=== PATIENT | female | born 1965 | race Caucasian/White ===

== ENCOUNTER 2020-02-20 12:10 | Emergency (ER) | payer OTHER, SELFPAY ==
--- NOTE | ~2020-02-20 | XR_ITS ---
EXAMINATION: XR abdomen/kub 1V DATE: 02/20/2020 14:21 INDICATION: Abdominal pain. TECHNIQUE: A supine view of the abdomen on 2 radiographs was obtained. COMPARISON: None. FINDINGS: There are no dilated loops of bowel. There is a moderate volume of stool in the colon. Calc ifications in the pelvis are likely phleboliths. IMPRESSION: 1. Normal bowel gas pattern. Reviewed, dictated and finalized at location B. LOOKOUT
--- NOTE | ~2020-02-20 | CT_ITS ---
EXAMINATION: CT abdomen pelvis wo con EXAM DATE: 02/20/2020 14:34 INDICATION: Left flank pain. Nausea and vomiting. TECHNIQUE: Spiral CT of the abdomen and pelvis was performed without contrast. Axial, coronal and sag ittal images were reviewed. The dose-length product (DLP) for this examination was 510.54 mGy-cm. T he exposure was tailored according to patient size (auto mA exposure control), and iterative reconstr uction (ASIR) was used as additional dose reduction technique. There is no prior study for compariso n. FINDINGS: There is a 5 mm stone in the distal aspect of the left ureter, 2 cm from the ureterovesicul ar junction, indicated on axial image 147. There is mild left-sided obstructive nephropathy. No other genitourinary calcifications. The uterus is not identified and has likely been surgically resected. The bladder is unremarkable. The liver, spleen, adrenal glands and pancreas are unremarkable. Gall bladder is unremarkable. No biliary obstruction. There is no retroperitoneal or pelvic lymphadenopa thy. The appendix is normal. There is small sliding gastroesophageal hiatal hernia. There is expected am ount of colonic stool. No free intraperitoneal gas. The heart is normal in size. There are no pe ricardial or pleural effusions. The lung bases are unremarkable. There are no osteoblastic or osteo lytic lesions identified. IMPRESSION: 1. Left distal ureteral 5 mm stone, mild obstructive nephropathy. Urologist consultants would apprec iatdean KUB as baseline for follow-up, treatment planning. 2. Small gastroesophageal hiatal hernia. Reviewed, dictated and finalized at location A. NING SUPERVISOR IMPRESSION: 1. Left distal ureteral 5 mm stone, mild obstructive nephropathy. Urologist co nsultants would appreciate KUB as baseline for follow-up, treatment planning. 2. Small gastroesophageal hiatal hernia.
[2020-02-20 12:31] VITALS: BP 126/76; PULSE 84; RESP 16; TEMP 37; O2SAT 100
[2020-02-20 12:59] LABS: Basophils Percent Auto 0.5 % (0.2-1.2); Eosinophils Absolute Auto 0.1 K/mm3 (0-0.3); Eosinophils Percent Auto 0.8 % (0-4.4); Hematocrit 40.5 % (37.0-47.0); Hemoglobin 13.8 g/dL (12.0-15.0); Immature Granulocyte Absolute 0.02 K/mm3 (0.00-0.031); Immature Granulocyte Percent A 0.2 % (0-0.5); Lymphocytes Absolute Auto 2.11 K/mm3 (0.9-3.2); Lymphocytes Percent Auto 23.8 % (18.3-44.2); Mean Corpuscular HGB Conc 34.1 g/dl (32-36); Mean Corpuscular Hemoglobin 29.8 pg (26-34); Mean Corpuscular Volume 87.5 fl (80-100); Mean Platelet Volume 10.7 fl (7.4-10.4); Monocytes Absolute Auto 0.4 K/mm3 (0.1-0.6); Monocytes Percent Auto 4.5 % (2.6-8.5); Neutrophils Absolute Auto 6.2 K/mm3 (1.3-6.7); Neutrophils Percent Auto 70.2 % (45.5-73.1); Platelet Count Result 334 k/mm3 (150-375); Red Blood Count 4.63 M/mm3 (4.2-5.4); Red Cell Distribution Width 12.3 % (11.5-14.5); White Blood Count 8.9 K/mm3 (4.5-10.0)
[2020-02-20 13:03] LABS: Add Urine Microscopic? YES; Appearance Urine Cloudy (Clear); Bacteria Urine Trace /hpf; Bilirubin Urine Negative (Negative); Blood Urine 3+ (Negative); Color Urine Yellow (Yellow); Glucose Urine UA Negative (Negative); Ketones Urine Trace mg/dL (Negative); Leukocyte Esterase Ur Trace LEU/UL (Negative); Mucus Urine Heavy /lpf; Nitrate Urine Negative (Negative); Protein Urine 2+ mg/dL (Negative); RBC Urine >75 /hpf (0-2); Specific Grav Ur 1.026 (1.001-1.035); Squamous Epithelial Cell Urine Many /hpf (Few); Urobilinogen Urine Negative mg/dL (<2.0)
[2020-02-20 13:17] LABS: Anion Gap 10 mmol/L (8-16); Blood Urea Nitrogen 14 mg/dL (7-17); Calcium 10.2 mg/dL (8.4-10.2); Carbon Dioxide 25 mmol/L (22-30); Chloride 105 mmol/L (98-107); Estimated CRCL calculation 64 ml/min; Estimated Glomerular Filt Rate > 60; Glucose 106 mg/dL (65-105); Potassium 4.1 mmol/L (3.4-5.0); Sodium 140 mmol/L (137-145)
--- NOTE | 2020-02-20 13:41 | ED.GENADULT ---
HPI - General Adult General Chief complaint: Back Pain/Injury Stated complaint: left flank pain Time Seen by Provider: 02/20/20 13:27 Source: patient Mode of arrival: ambulatory Limitations: no limitations History of Present Illness HPI narrative: Patient is a 54-year-old female who presents to emergency department for evaluation of right flank pain that began acutely today as a sharp stabbing pain with associated nausea and vomiting patient has not taken anything for her symptoms denies similar occurrence notes that she had felt fine yesterday pain radiates from right CVA region into the abdomen Related Data Allergies Allergy/AdvReac Type Severity Reaction Status Date / Time No Known Allergies Allergy Unverified 05/19/11 11:57 Review of Systems Review of Systems: All systems reviewed & are unremarkable except as noted in HPI and below PMFSH Social History Social History (Updated 02/20/20 @ 15:54 by Juan Gil PA-C) Smoking status: Current every day smoker Exam Narrative: Exam Narrative: GENERAL: Well-appearing, well-nourished, uncomfortable and in no acute distress. HEAD: Normocephalic, atraumatic. EYES: PERRLA and EOMI. ENT: Nares clear, no rhinorrhea or epistaxis. Mucous membranes moist. CHEST: Clear to auscultation. No respiratory distress. No wheezes rales or rhonchi HEART: Regular rate and rhythm. No murmur heard. Normal peripheral pulses. ABDOMEN: Soft, right-sided abdominal tenderness no distention guarding or rebound EXTREMITIES: Normal range of motion. No edema. SKIN: Warm, dry, no rash. NEURO: No focal deficits. Alert and oriented x3. PSYCH: Normal mood and affect. Course Course Emergency Course: Patient with urolithiasis will be discharged home with urological follow-up patient is aware of case findings treatment plan diagnosis pain well controlled Consultations Consultation #1: Discussed case with urology who will follow patient on an outpatient basis Date: 02/20/20 Time: 15:55 Vital Signs Vital signs: Vital Signs Temperature 98.6 F 02/20/20 12:31 Pulse Rate 84 02/20/20 12:31 Respiratory Rate 16 02/20/20 12:31 Blood Pressure 126/76 02/20/20 12:31 Pulse Oximetry 100 02/20/20 12:31 Temperature 98.6 F 02/20/20 12:31 Pulse Rate 84 02/20/20 12:31 Respiratory Rate 16 02/20/20 12:31 Blood Pressure 126/76 02/20/20 12:31 Pulse Oximetry 100 02/20/20 12:31 Medical Decision Making MDM Narrative Medical decision making narrative: Patient with urolithiasis in the room in no distress aware of discussion with urologist will follow with urology as planned will be treated symptomatically on an outpatient basis given reasons to return Vital Signs Vital Signs: Vital Signs Temperature 98.6 F 02/20/20 12:31 Pulse Rate 84 02/20/20 12:31 Respiratory Rate 16 02/20/20 12:31 Blood Pressure 126/76 02/20/20 12:31 Pulse Oximetry 100 02/20/20 12:31 Temperature 98.6 F 02/20/20 12:31 Pulse Rate 84 02/20/20 12:31 Respiratory Rate 16 02/20/20 12:31 Blood Pressure 126/76 02/20/20 12:31 Pulse Oximetry 100 02/20/20 12:31 Lab Data Result diagrams: 02/20/20 12:50 02/20/20 12:50 Labs: Lab Results 02/20/20 02/20/20 02/20/20 Range/Units 12:50 12:50 12:50 WBC 8.9 (4.5-10.0) K/mm3 RBC 4.63 (4.2-5.4) M/mm3 Hgb 13.8 (12.0-15.0) g/dL Hct 40.5 (37.0-47.0) % MCV 87.5 (80-100) fl MCH 29.8 (26-34) pg MCHC 34.1 (32-36) g/dl RDW 12.3 (11.5-14.5) % Plt Count 334 (150-375) k/mm3 MPV 10.7 H (7.4-10.4) fl Immature Gran % (Auto) 0.2 (0-0.5) % Neut % (Auto) 70.2 (45.5-73.1) % Lymph % (Auto) 23.8 (18.3-44.2) % [place] % (Auto) 4.5 (2.6-8.5) % Eos % (Auto) 0.8 (0-4.4) % Baso % (Auto) 0.5 (0.2-1.2) % Lymph # (Auto) 2.11 (0.9-3.2) K/mm3 [place] # (Auto) 0.4 (0.1-0.6) K/mm3 Eos # (Auto) 0.1 (0-0.3) K/mm3 Baso # (Auto) 0.0 (0.0-0.1)
[2020-02-20] MEDS: SODIUM CHLORIDE 0.9% IV 1,000 ML 999 ML IV CONT (13:46)
[2020-02-20] MEDS: FAMOTIDINE 20 MG/2 ML VIAL IV PUSH (13:46)
[2020-02-20 15:00] VITALS: BP 124/61; PULSE 83; RESP 18; O2SAT 98
--- NOTE | 2020-02-29 08:44 | PC.NURSE ---
LATE ENTRY This note is being entered to document information to the patient's record. The following information was omitted on [02/20/20], by [Aung Carter RN. NS end time [id number].].
== END 2020-02-20 16:58 | disposition home or self-care (01) ==
PROVIDERS: Emergency Provider Emergency Medicine; PCP Family Medicine
DX: N13.8 Other obstructive and reflux uropathy (principal); N20.1 Calculus of ureter; F17.200 Nicotine dependence, unspecified, uncomplicated; K44.9 Diaphragmatic hernia without obstruction or gangrene
CPT/HCPCS: 36415; 74018; 74176; 80048; 81001; 85025; 96365; 96366; 96375; 99284; J0131; J7030

== ENCOUNTER 2020-02-24 17:30 | Emergency (ER) | payer OTHER, SELFPAY ==
--- NOTE | ~2020-02-24 | XR_ITS ---
EXAMINATION: XR abdomen/kub 1V EXAM DATE: 02/24/2020 19:50 INDICATION: Left distal ureteral stone. TECHNIQUE: Frontal projection(s) of the abdomen for interpretation. Comparison is made to prior exami nation from 02/19. FINDINGS: Largest left-sided pelvic calcification could be a 6 mm ureteral stone, finding indicated. This may have moved to the UVJ, migrated a few centimeters distally compared to 4 days earlier. No o ther suspicious calcifications. There is a nonobstructive bowel gas pattern. IMPRESSION: Probable left UVJ 6 mm stone. Reviewed, dictated and finalized at location A. RACT NEGOTIATION SPECIALIST
[2020-02-24 17:58] VITALS: BP 139/70; PULSE 99; RESP 18; TEMP 36.8; O2SAT 99
--- NOTE | 2020-02-24 19:55 | ED.ABDPAIN ---
HPI - Abdominal Pain General Chief Complaint: Abdominal Pain Stated Complaint: possible kidney stone Time Seen by Provider: 02/24/20 19:28 Source: patient Mode of arrival: ambulatory Limitations: no limitations History of Present Illness HPI narrative: This patient is a 54 year old female who presents for an evaluation of a kidney stone and difficulty urinating. Patient reports she was diagnosed with a left distal ureter stone on Tuesday. She has continued to have pain constantly in her left lower abdomen. She has been taking Toradol and ibuprofen for her pain. She was evaluated by urologist on Tuesday and she was told she has a 50 % chance of passing her stone. [facility] having the urge to urinate but she was only able to urinate a small amount. She states she was able to give a urine sample on arrival her. She denies fever or chills. She has nausea but no vomiting. Related Data Home Medications Medication Instructions Recorded Confirmed ketorolac [Toradol] 10 mg PO Q6H PRN 02/24/20 Allergies Allergy/AdvReac Type Severity Reaction Status Date / Time No Known Allergies Allergy Verified 02/24/20 18:00 Review of Systems Review of Systems: All systems reviewed & are unremarkable except as noted in HPI and below Constitutional: Constitutional: Denies chills and Denies fever(s) Respiratory: Respiratory: Denies dyspnea Gastrointestinal: Gastrointestinal: Reports abdominal pain, Reports constipation, Denies diarrhea, Reports nausea and Denies vomiting Genitourinary: Genitourinary: Denies hematuria, Reports nocturia and Denies flank pain Musculoskeletal: Musculoskeletal: Denies back pain [facility] Past Medical History Medical History (Updated 02/25/20 @ 00:00 by Sid Marx) Patient denies medical problems Surgical History Surgical History (Updated 02/24/20 @ 20:01 by Sabrina Herbert MD) H/O shoulder surgery Social History Social History (Updated 02/20/20 @ 15:54 by Juan Gil PA-C) Smoking status: Current every day smoker Exam Const: General: no acute distress and alert Orientation/consciousness: patient oriented x3 HENMT: Head: atraumatic Face and sinus: face symmetric Eyes: EOM: EOMs intact bilaterally Chest: Chest palpation & inspection: normal inspection of the chest Resp: Effort & Inspection: normal respiratory effort and no retractions Auscultation: clear to auscultation bilaterally Cardio: Rate: regular rate Rhythm: regular rhythm Heart sounds: no murmurs GI: GI Palp: Yes Soft to palpation, Yes Tenderness to palpation present (GI) (LLQ), No Guarding due to palpation present (GI) and No Rigid due to palpation Auscultation: normal bowel sounds Neuro: General: patient oriented x3 and moves all extremities Course Reevaluation(s) Reevaluation #1: I discussed with patient that labs and UA are unremarkable. Staff performed a bladder scan and after urination she only had 60 ml. I Discussed discharge plan to follow up with urologist. She still declines pain medication. Date: 02/24/20 Time: 22:09 Consultations Consultation #1: I spoke to Dr. Dover who states he will send a message to provider that saw patient on Tuesday in office to let them know she returned to ER. Date: 02/24/20 Time: 22:10 Vital Signs Vital signs: Vital Signs Temperature 98.3 F 02/24/20 17:58 Pulse Rate 99 02/24/20 17:58 Respiratory Rate 18 02/24/20 17:58 Blood Pressure 139/70 02/24/20 17:58 Pulse Oximetry 99 02/24/20 17:58 Temperature 98.3 F 02/24/20 17:58 Pulse Rate 78 02/24/20 22:48 Respiratory Rate 18 02/24/20 17:58 Blood Pressure 148/80 H 02/24/20 22:48 Pulse Oximetry 98 02/24/20 22:48 MDM - Abdominal Pain Lab Data Attestation: I reviewed the patient's lab results. Result diagrams: 02/24/20 20:55 02/24/20 20:55 Labs: Lab Results 02/24/20 02/24/20 02/24/20 Rang
[2020-02-24 20:50] LABS: Add Urine Microscopic? NO; Appearance Urine Clear (Clear); Bilirubin Urine Negative (Negative); Blood Urine Negative (Negative); Color Urine Colorless (Yellow); Glucose Urine UA Negative (Negative); Ketones Urine Negative (Negative); Leukocyte Esterase Ur Negative LEU/UL (Negative); Nitrate Urine Negative (Negative); Protein Urine Negative (Negative); Specific Grav Ur 1.005 (1.001-1.035); Urobilinogen Urine Negative mg/dL (<2.0)
[2020-02-24 21:03] LABS: Basophils Percent Auto 0.4 % (0.2-1.2); Eosinophils Absolute Auto 0.1 K/mm3 (0-0.3); Eosinophils Percent Auto 0.9 % (0-4.4); Hematocrit 34.3 % (37.0-47.0); Hemoglobin 11.2 g/dL (12.0-15.0); Immature Granulocyte Absolute 0.02 K/mm3 (0.00-0.031); Immature Granulocyte Percent A 0.2 % (0-0.5); Lymphocytes Absolute Auto 1.76 K/mm3 (0.9-3.2); Lymphocytes Percent Auto 17.5 % (18.3-44.2); Mean Corpuscular HGB Conc 32.7 g/dl (32-36); Mean Corpuscular Hemoglobin 30.1 pg (26-34); Mean Corpuscular Volume 92.2 fl (80-100); Mean Platelet Volume 10.5 fl (7.4-10.4); Monocytes Absolute Auto 0.8 K/mm3 (0.1-0.6); Monocytes Percent Auto 7.8 % (2.6-8.5); Neutrophils Absolute Auto 7.4 K/mm3 (1.3-6.7); Neutrophils Percent Auto 73.2 % (45.5-73.1); Platelet Count Result 280 k/mm3 (150-375); Red Blood Count 3.72 M/mm3 (4.2-5.4); Red Cell Distribution Width 12.3 % (11.5-14.5); White Blood Count 10.1 K/mm3 (4.5-10.0)
[2020-02-24 21:27] LABS: Alanine Aminotransferase 19 U/L (4-35); Albumin Level 4.1 g/dL (3.5-5.1); Alkaline Phosphatase 60 U/L (38-126); Anion Gap 9 mmol/L (8-16); Aspartate Amino Transferase 25 U/L (14-36); Bilirubin,Total 0.7 mg/dL (0.2-1.3); Blood Urea Nitrogen 13 mg/dL (7-17); Calcium 9.2 mg/dL (8.4-10.2); Carbon Dioxide 31 mmol/L (22-30); Chloride 103 mmol/L (98-107); Estimated CRCL calculation 46 ml/min; Estimated Glomerular Filt Rate 57; Glucose 102 mg/dL (65-105); Potassium 4.2 mmol/L (3.4-5.0); Sodium 143 mmol/L (137-145)
[2020-02-24 22:48] VITALS: BP 148/80; PULSE 78; O2SAT 98
== END 2020-02-24 22:49 | disposition home or self-care (01) ==
PROVIDERS: Emergency Provider General Practice; PCP Family Medicine
DX: N20.1 Calculus of ureter (principal); F17.290 Nicotine dependence, other tobacco product, uncomplicated
CPT/HCPCS: 36415; 74018; 80053; 81003; 85025; 99283

== ENCOUNTER 2020-02-26 01:21 | Day surgery (SDC) | payer OTHER, SELFPAY ==
[2020-02-25 13:47] VITALS: BMI 26.5
[2020-02-26] VITALS (7 sets, daily range): BP systolic 117–139; BP diastolic 51–74; PULSE 87–100; RESP 12–20; TEMP 36.9; O2SAT 95–100
--- NOTE | ~2020-02-26 | XR_ITS ---
EXAMINATION: XR retrograde pyelo w/stent LT EXAM DATE: 02/26/2020 14:59 INDICATION: Left ureteral stone extraction, stent placement. TECHNIQUE: Fluoroscopy used during XR retrograde pyelo w/stent LT performed by Dr. Huey casas MD. The DAP for this procedure was 214 radcm2 FINDINGS: Left ureter was cannulated, injected. There is mild left hydroureteronephrosis. Double-J u reteral stent was placed. Correlate with procedure note. IMPRESSION: Fluoroscopy used during XR retrograde pyelo w/stent LT. Reviewed, dictated and finalized at location A. AL SALES DIRECTOR
--- NOTE | 2020-02-26 09:29 | ECG_ITS ---
Measurements Intervals [place] Rate: 89 P: 62 [place]: 164 QRS: 16 QRSD: 77 T: 30 QT: 329 QTc: 401 Interpretive Statements SINUS RHYTHM BASELINE WANDER- I, II, III, AVL, AVF NORMAL ECG Electronically Signed On 02-26-2020 13:17:52 TILT TRAY DRIVER by Tamir Guerra D.O.
--- NOTE | 2020-02-26 12:10 | SUR.PREOP ---
1145-PT INFORMED SURGEON DELAYS SELF ~ 30 MINUTES.
[2020-02-26] MEDS: LACTATED RINGERS 1,000 ML 30 ML IV CONT (12:20)
--- NOTE | 2020-02-26 12:32 | WPDHPUPDATE1 ---
History and Physical Update Update Date/Time: 02/26/20 12:32 History and Physical has been reviewed, including an updated exam of the patient. There are NO changes in the patient's condition. Risks, benefits, and alternatives have been discussed and questions answered. Patient agrees to proceed with procedure. Proceed with cystoscopy, left retrograde pyelogram, left ureteroscopy with possible holmium laser stone extraction and stent placement
--- NOTE | 2020-02-26 13:44 | WPDANESEPPF ---
Anes - Initial Pre Proc Eval Procedure: Operation Date: 02/26/20 13:30 Proposed Procedures p Cystoscopy, Left Retrograde Pyelogram, Left Stone Extraction, - Huey Card MD s Possible Holmium Laser Procedure, Possible Left Stent Placement - Huey Card MD Date/Time: 02/26/20 13:44 Surgeon: Huey Card MD Pre Op Diagnosis: left renal stone Patient Data Age: 54 Gender: F Height: 1.6 m Weight: 68.6 kg Last Vital Signs Temp 36.9 C 02/26/20 11:45 Pulse 96 02/26/20 11:45 Resp 16 02/26/20 11:45 BP 124/51 L 02/26/20 11:45 Pulse Ox 100 02/26/20 11:45 Allergies Allergy/AdvReac Type Severity Reaction Status Date / Time No Known Allergies Allergy Verified 02/26/20 11:45 Home Medications Medication Instructions Recorded Confirmed Type ondansetron 4 mg PO Q6H PRN #7 tablet 02/20/20 02/26/20 Rx ketorolac [Toradol] 10 mg PO Q6H PRN 02/24/20 02/26/20 History atorvastatin 10 mg PO HS 02/25/20 02/26/20 History tamsulosin [Flomax] 0.4 mg PO QNOON 02/25/20 02/26/20 History ECG: Date of Service: 02/26/20 Procedure(s): CA 12 lead EKG Accession Number(s): [id number] cc: ~ Measurements Intervals [place] Rate: 89 P: 62 [place]: 164 QRS: 16 QRSD: 77 T: 30 QT: 329 QTc: 401 Interpretive Statements SINUS RHYTHM BASELINE WANDER- I, II, III, AVL, AVF NORMAL ECG Electronically Signed On 02-26-2020 13:17:52 PILLOW FILLER by Tamir Guerra D.O. Dictated By: Tamir Guerra DO 02/26/20 1203 Patient hx anesthesia problems: post op nausea/vomiting Family hx anesthesia problems: none PMFSH Past Medical History Medical History (Updated 02/26/20 @ 13:46 by Darryn Daily MD) Hypercholesterolemia Overweight (BMI 25.0-29.9) Surgical History Surgical History (Updated 02/24/20 @ 20:01 by Sabrina Herbert MD) H/O shoulder surgery Social History Social History (Updated 02/20/20 @ 15:54 by Juan Gil PA-C) Smoking status: Never smoker Living arrangements: with family Spiritual care concerns: No Anes - Eval Final PreProcedure Day of Procedure 02/26/20 13:44 Patient weight: overweight Heart: regular rate and rhythm Lungs: clear to auscultation and normal air movement Airway: Mallampati scale class II Neurological: alert and oriented Last oral intake: >/= 8 hours ASA classification: II Emergent: no Anesthetic plan: proceed Anesthesia type and monitoring: general LMA Informed Consent: The patient's anesthetic plan and its attendant risks and benefits were discussed with the patient/family/POA. Questions were solicited and answers provided to the satisfaction of the patient/family/POA.
[2020-02-26] MEDS: ceFAZolin 2 GM/D5W 50 ML 2 GM/50 ML BAG IVPB (14:32)
[2020-02-26] MEDS: LIDOCAINE HCL 2% GEL UROJET 10 ML PKG MUCOUS MEM (14:52)
--- NOTE | 2020-02-26 14:53 | SUR.OPER ---
left stent Contour VL 4.8FR Lot [id number] Exp 2022-11-11
--- NOTE | 2020-02-26 14:54 | PM.PROC ---
Procedure Note - Detailed Date of procedure: 02/26/20 Pre-op diagnosis: left renal stone Left ureteral calculus 5-6 mm Post-op diagnosis: same Procedure performed: Cystoscopy, left retrograde pyelogram, left ureteroscopy with stone extraction, left ureteral stent placement 4.8 Setswana contour Description of procedure: Patient is taken to the operative suite and correctly identified. Once anesthesia was obtained she was placed in dorsal lithotomy position and prepped draped usual sterile fashion. Twenty-two Setswana scope inserted and bladder there is no tumors noted. The left ureteral orifice cannulated with a guidewire. We then dilated with 8/10 dilator. Rigid ureteral scope was inserted the stone was visualized. We were able the retrieve it in 1 piece with an escape basket. Reinspection revealed no residual stones. Pyelogram was then performed through the scope. This is to confirm placement of the stent. 4.8 contour stent was then placed over the wire with the proximal end coiled in the renal pelvis distal in the bladder. 2% viscous lidocaine was inserted urethra. Patient is taken recovery stable condition. She will be discharged home with pain meds and antibiotics. Follow-up in 1 week's time for stent removal. Anesthesia: GLMA Surgeon: Huey Card MD Drains: No Packing: No Pathology: yes Complications: No immediate complications Condition: stable Disposition: PACU
== END 2020-02-26 16:25 | disposition home or self-care (01) ==
PROVIDERS: PCP Family Medicine; Visit Provider Urology
PROC: (CPT 52352; principal; 2020-02-26 13:30)
PROC: (CPT 52332; 2020-02-26 13:30)
DX: N20.1 Calculus of ureter (principal); E78.00 Pure hypercholesterolemia, unspecified
CPT/HCPCS: 52332; 52352; 74420; 82365; 88300; 93005; A9270; C1769; C2617; J0690; J1100; J1200; J2250; J2405; J2704; J3010; J7120; Q9966

== ENCOUNTER 2021-09-04 00:32 | Day surgery (SDC) | payer OTHER, SELFPAY ==
[2021-08-24 15:24] VITALS: BMI 26.6
[2021-09-04 06:50] VITALS: BP 135/67; PULSE 103; RESP 16; TEMP 36.9; O2SAT 100; BMI 27.1
[2021-09-04] MEDS: LACTATED RINGERS 1,000 ML 150 ML IV CONT (07:12)
--- NOTE | 2021-09-04 07:23 | WPDGICN ---
Assessment and Plan Assessment and plan (1) Sore throat: Code(s): J02.9 - Acute pharyngitis, unspecified Status: Acute Assessment and Plan: Patient complains of a sore throat since [place]. This persistent ongoing. Patient denies any dysphagia at present. EGD is requested to assess for pain. And will be done although there are limitations looking at the back of the throat. If EGD is unremarkable ENT evaluation is suggested. (2) GERD (gastroesophageal reflux disease): Code(s): K21.9 - Gastro-esophageal reflux disease without esophagitis Status: Acute Assessment and Plan: Patient has complaints of heartburn suggesting underlying acid reflux disease. She has been on Prilosec for a brief interval of time and has had significantImprovement heartburn. His may no impact on her sore throat. GI Consult Note Consult date/time: 09/04/21 07:23 Reason for consult: Sore throat HPI: Litzy Reno is a 55 year old female referred by primary care service because of complaints of dysphagia. On questioning patient states she has no difficulty swallowing. She states that she has had a sore throat that began around Easter and. This is persisted. She states pain is typically on the low right throat area. She has not seen ENT evaluation. She has had no bleeding. No weight loss. She does report occasional heartburn that is separate and distinct from this pain. This is improved on taking Prilosec for the last 2 weeks. Previously she took Gaviscon. Patient has a distant history of pill esophagitis many years ago. At that time and endoscopy revealed an ulcer in the distal esophagus attributed to pill esophagitis. Her family history is noncontributory. Review of Systems Review of Systems: Review of systems noncontributory. [facility] Past Medical History Medical History Hypercholesterolemia Overweight (BMI 25.0-29.9) Surgical History Surgical History H/O shoulder surgery Family History Family History Father Patient's father is Mother Family history of coronary artery disease Other No family history of diabetes mellitus No family history of hypertension No family history of malignant neoplasm Social History Social History Smoking status: Never smoker Alcohol intake: never Substance use: never Substance use type: does not use Living arrangements: with family Spiritual care concerns: No Meds Home Medications and Allergies Home Medications Medication Instructions Recorded Confirmed Type atorvastatin 10 mg tablet 10 mg PO HS 02/25/20 09/04/21 History omeprazole 40 mg capsule,delayed 40 mg PO DAILY #90 caps 08/13/21 09/04/21 Rx release Allergies Allergy/AdvReac Type Severity Reaction Status Date / Time No Known Allergies Allergy Verified 09/04/21 06:58 Vital Signs Vital Signs - 24 hr 09/04/21 06:50 Temperature 98.5 F Pulse Rate 103 H Respiratory Rate 16 Blood Pressure 135/67 Pulse Oximetry 100 Oxygen Delivery Room Air Exam Narrative: Physical exam reveals patient to be alert. Vital signs stable. HEENT exam is unremarkable. Patient is anicteric. Lungs are clear to auscultation and percussion. Heart is without murmur or extra sounds. Abdominal exam bowel sounds are present soft nontender with no organomegaly.
[2021-09-04 07:58] VITALS: BP 115/74; PULSE 97; RESP 19; O2SAT 97
[2021-09-04 08:08] VITALS: BP 127/85; PULSE 84; RESP 14; O2SAT 99
[2021-09-04 08:18] VITALS: BP 138/90; PULSE 78; RESP 15; O2SAT 99
== END 2021-09-04 08:32 | disposition home or self-care (01) ==
PROVIDERS: PCP Family Medicine; Visit Provider Internal Medicine Gastroenterology
PROC: 0DJ08ZZ Inspection of Upper Intestinal Tract, Via Natural or Artificial Opening Endoscopic (ICD-10-PCS; CPT 43235; principal; 2021-09-04 08:00)
DX: K21.9 Gastro-esophageal reflux disease without esophagitis (principal); K44.9 Diaphragmatic hernia without obstruction or gangrene; J02.9 Acute pharyngitis, unspecified; E78.00 Pure hypercholesterolemia, unspecified
CPT/HCPCS: 43239; 87081; J2704; J7120